=== PATIENT | female | born 1955 | race Caucasian/White ===

== ENCOUNTER 2019-03-25 19:45 | Observation (INO) ==
[2019-03-25 20:13] VITALS: BMI 43.6
[2019-03-25] MEDS ORDERED: MORPHINE SULFATE INJ 4 MG IVP ONE (22:04)
[2019-03-25] MEDS ORDERED: ZOFRAN INJ 4 MG VIAL IVP ONE (22:04)
[2019-03-25] MEDS ORDERED: ZOFRAN INJ 4 MG VIAL ONE (22:22)
[2019-03-25 22:23] LABS: BASOPHILS # (AUTO) 0.1 X10^3/uL (0.0-0.1); BASOPHILS % (AUTO) 0.7 % (0.2-1.0); EOSINOPHILS # (AUTO) 0.2 x10^3/uL (0.0-0.2); EOSINOPHILS % (AUTO) 1.6 % (0.9-2.9); HEMATOCRIT 41.6 % (36.0-47.0); HEMOGLOBIN 14.7 g/dL (12.0-16.0); LYMPHOCYTES # (AUTO) 1.8 X10^3/uL (1.3-2.9); LYMPHOCYTES % (AUTO) 18.1 % (21.0-51.0); MEAN CORPUSCULAR HEMOGLOBIN 32.3 pg (27.0-34.0); MEAN CORPUSCULAR HGB CONC 35.4 g/dL (33.0-35.0); MEAN CORPUSCULAR VOLUME 91.1 fL (80.0-100.0); MEAN PLATELET VOLUME 8.7 fL (7.4-11.0); MONOCYTES # (AUTO) 0.5 x10^3/uL (0.3-0.8); MONOCYTES % (AUTO) 5.5 % (0.0-13.0); NEUTROPHILS # (AUTO) 7.3 x10^3/uL (2.2-4.8); NEUTROPHILS % (AUTO) 74.1 % (42.0-75.0); PLATELET COUNT 234 X10^3/uL (150.0-450.0); RED BLOOD COUNT 4.56 X10^6/uL (3.5-5.4); RED CELL DISTRIBUTION WIDTH 13.9 % (11.6-16.5); WHITE BLOOD COUNT 9.9 X10^3/uL (3.6-10.0)
[2019-03-25] MEDS ORDERED: MORPHINE SULFATE INJ 4 MG ONE (22:23)
--- NOTE | 2019-03-25 22:23 | ED.ABDFE ---
HPI Time Seen Time Seen by Provider: 03/25/19 22:04 PCP Primary Care Physician: PAO Complaint Chief Complaint:: PT STATES THAT YESTERDAY AFTERNOON SHE STARTED HAVING SLIGHT PAIN IN HER LEFT LOWER PELVIS AND BY LAST NIGHT SHE COULDNT HARDLY MOVE WITH IT. PT STATES THAT IT FEELS LIKE SOMETHING IS "CATCHING". LAST BM TODAY. PT DENIES ANY INJURY. PAIN IS WORSE WITH ANY MOVEMENT Self Treatment fo Chief Complaint: TOOK TYLENOL ARTHRITIS WITH NO RELIEF Source History Provided: Patient Mode of arrival Mode of Arrival: Ambulatory Timing Onset of Chief Complaint: 03/24/19 PMH PMH Past Medical History: Yes Past Medical History: Arthritis, Asthma, Coronary Artery Disease, GERD, Hypertension and PUD Past Medical History Comment: IBS, HEMOCHROMATOSIS Past Surgical History: Yes Surgical History: Angioplasty/Stents, Appendectomy, Cholecystectomy, Hysterectomy, Ortho Surgery and Other Past Surgical History Comment: CERVICAL FUSION, ARTHRODESIS OF LEFT FOOT Family History History of Family Medical Conditions: Yes Family Medical History: Cancer, [place] and Hypertension Social History Does patient currently use any type of tobacco product: No Have you used tobacco products in the last 12 months: No Type of Tobacco Use: None Does any household member use tobacco: No Alcohol Use: None Do you use any recreational Drugs:: No Lives With: Alone Lives Where: Home infectious screening In the last 2 months have you had wt loss of >10#?: NO Have you had fever, night sweats or hemotysis?: No Have you traveled outside the country in the last 6 months?: No Isolation: Standard PE Vital Signs Vitals: Temperature 98.1 F Pulse Rate [Left Apical] 80 Pulse Rate 87 Respiratory Rate 20 Blood Pressure [Right Radial 128/62 Artery] Blood Pressure [Left Arm] 143/78 Blood Pressure [Right Arm] 129/73 Blood Pressure 187/91 O2 Sat by Pulse Oximetry 96 ROR Labs Reviewed Result Diagrams: 03/25/19 22:16 03/25/19 22:16 Laboratory: WBC 9.9 X10^3/uL (3.6-10.0) 03/25/19 22:16 RBC 4.56 X10^6/uL (3.5-5.4) 03/25/19 22:16 Hgb 14.7 g/dL (12.0-16.0) 03/25/19 22:16 Hct 41.6 % (36.0-47.0) 03/25/19 22:16 MCV 91.1 fL (80.0-100.0) 03/25/19 22:16 MCH 32.3 pg (27.0-34.0) 03/25/19 22:16 MCHC 35.4 g/dL (33.0-35.0) H 03/25/19 22:16 RDW 13.9 % (11.6-16.5) 03/25/19 22:16 Plt Count 234 X10^3/uL (150.0-450.0) 03/25/19 22:16 MPV 8.7 fL (7.4-11.0) 03/25/19 22:16 Neut % (Auto) 74.1 % (42.0-75.0) 03/25/19 22:16 Lymph % (Auto) 18.1 % (21.0-51.0) L 03/25/19 22:16 [place] % (Auto) 5.5 % (0.0-13.0) 03/25/19 22:16 Eos % (Auto) 1.6 % (0.9-2.9) 03/25/19 22:16 Baso % (Auto) 0.7 % (0.2-1.0) 03/25/19 22:16 Neut # (Auto) 7.3 x10^3/uL (2.2-4.8) H 03/25/19 22:16 Lymph # (Auto) 1.8 X10^3/uL (1.3-2.9) 03/25/19 22:16 [place] # (Auto) 0.5 x10^3/uL (0.3-0.8) 03/25/19 22:16 Eos # (Auto) 0.2 x10^3/uL (0.0-0.2) 03/25/19 22:16 Baso # (Auto) 0.1 X10^3/uL (0.0-0.1) 03/25/19 22:16 Absolute Nucleated RBC 0.0 /100WBC 03/25/19 22:16 Sodium 140 mmol/L (136-145) 03/25/19 22:16 Corrected Sodium 140 mmol/L (136-145) 03/25/19 22:16 Potassium 4.7 mmol/L (3.5-5.1) 03/25/19 22:16 Chloride 103 mmol/L (98-107) 03/25/19 22:16 Carbon Dioxide 31.4 mmol/L (21-32) 03/25/19 22:16 BUN 14 mg/dL (7-18) 03/25/19 22:16 Creatinine 0.91 mg/dL (0.55-1.02) 03/25/19 22:16 Est GFR (MDRD) Af Amer > 60 (>60) 03/25/19 22:16 Est GFR (MDRD) Non-Af > 60 (>60) 03/25/19 22:16 Glucose 115 mg/dL (65-99) H 03/25/19 22:16 Calcium 9.1 mg/dL (8.5-10.1) 03/25/19 22:16 Corrected Calcium TNP 03/25/19 22:16 Total Bilirubin 0.80 mg/dL (0.2-1.0) 03/25/19 22:16 AST 16 Units/L (15-37) 03/25/19 22:16 ALT 18 Units/L (12-78) 03/25/19 22:16 Alkaline Phosphatase 118 Units/L (46-116) H 03/25/19 22:16 Total Protein 7.8 g/dL (6.4-8.2) 03/25/19 22:16 Albumin 3.8 g/dL (3.4-5.0) 03/25/19 22:16 Globulin 4.0 g/dL (2.5-4.5) 03/25/19 22:16 Albumin/Globulin Ratio 1.0 Ratio (1.1-2.1) L 03/25/19 22:16 Amylase 26 Units/L (25-115) 03/25/19 22:16 Lipase 97 Units/L (73-393) 03/25/19 22:16 Opioid Opioid Risk Tool History of Preadolescent Sexual Abuse: No Total: 0 Total Score Risk Category: Low Risk Copyright: Danny NAVARRETE predicting aberrant behaviors
[2019-03-25 22:34] LABS: ALANINE AMINOTRANSFERASE 18 Units/L (12-78); ALBUMIN 3.8 g/dL (3.4-5.0); ALKALINE PHOSPHATASE 118 Units/L (46-116); AMYLASE 26 Units/L (25-115); ASPARTATE AMINO TRANSFERASE 16 Units/L (15-37); BLOOD UREA NITROGEN 14 mg/dL (7-18); CALCIUM 9.1 mg/dL (8.5-10.1); CARBON DIOXIDE 31.4 mmol/L (21-32); CHLORIDE 103 mmol/L (98-107); COR NA(FOR HYPERGLY) 140 mmol/L (136-145); CREATININE 0.91 mg/dL (0.55-1.02); LIPASE 97 Units/L (73-393); SODIUM 140 mmol/L (136-145); TOTAL PROTEIN 7.8 g/dL (6.4-8.2); eGFR NON BLACK RACES > 60 (>60)
--- NOTE | 2019-03-25 23:23 | CT ---
CT abdomen and pelvis without contrast Indication: Severe left lower quadrant pain Comparison: None available Technique: Multiple axial images of the abdomen and pelvis were obtained from the lung bases to the pubic symphysis without the administration of IV contrast. Coronal and sagittal reformatted images were also provided. Dose reduction techniques including automated exposure control (AEC) and adjustment of mA and kV were utilized. Findings: Overall sensitivity in detection of solid organ injury, mass or inflammatory change along with vascular injury or mesenteric hematoma is severely limited given lack of IV contrast administration. The lung bases are clear. The liver demonstrates no focal hepatic lesion given limitations of a noncontrast exam. Small calcification adjacent to the left hepatic capsule. Prior cholecystectomy. Bile ducts are normal in caliber. The spleen, pancreas and adrenal glands are normal. Neither kidney demonstrates evidence of nephrolithiasis, hydronephrosis or mass. Upper GI tract is normal. Urinary bladder is normal. No pelvic or adnexal mass. The rectum is there is inflammatory change adjacent to the descending colon seen on coronal image 21, there is no definite bowel wall thickening suggesting this represents epiploic appendagitis. Scattered diverticula are noted within the distal colon. The terminal ileum is normal. Abdominal aorta is normal in caliber. No pelvic free fluid. Review of bone windows demonstrates no acute osseous abnormality. Impression: 1.Mild inflammatory change adjacent to the descending colon, given lack of definite bowel wall thickening this is most consistent with acute epiploic appendagitis. 2. Distal colonic diverticulosis, again there is no definite bowel wall thickening to suggest acute diverticulitis. Reported By:
[2019-03-26] MEDS ORDERED: FLAGYL IV PREMIX 500 MG BAG 500 MG/100 ML BAG IV ONE (01:10)
[2019-03-26] MEDS ORDERED: PEPCID 20 MG IV PREMIX* 20 MG/50 ML BAG IV PRN (01:14)
[2019-03-26] MEDS ORDERED: MORPHINE SULFATE INJ 2 MG INJ IVP PRN (01:14)
[2019-03-26] MEDS: FLAGYL IV PREMIX 500 MG BAG 500 MG/100 ML BAG IV SCH ×5 (01:15→22:22)
[2019-03-26] MEDS ORDERED: MORPHINE SULFATE INJ 4 MG ONE (01:17)
[2019-03-26] MEDS: MORPHINE SULFATE INJ 4 MG IVP PRN (01:27)
[2019-03-26] MEDS: ZOFRAN INJ 4 MG VIAL IVP PRN (01:27)
[2019-03-26] MEDS: NS 1000 ML 1,000 ML IV SCH ×4 (01:28→22:22)
[2019-03-26] MEDS ORDERED: CIPRO IV 400 MG PREMIX* 400 MG/200 ML IV.SOLN. IV ONE (02:03)
[2019-03-26] MEDS: CIPRO IV 400 MG PREMIX* 400 MG/200 ML IV.SOLN. IV SCH ×3 (02:07→20:45)
[2019-03-26 03:10] LABS: BILIRUBIN,URINE NEGATIVE (NEGATIVE); BLOOD/HEMOGLOBIN,URINE NEGATIVE (NEGATIVE); GLUCOSE, URINE NEGATIVE (NEGATIVE); KETONES,URINE NEGATIVE (NEGATIVE); LEUKOCYTE ESTERASE ,URINE 1+ (NEGATIVE); NITRITES,URINE NEGATIVE (NEGATIVE); PROTEIN,URINE NEGATIVE (NEGATIVE); UROBILINOGEN,URINE NORMAL (NORMAL)
[2019-03-26 03:14] LABS: APPEARANCE,URINE CLEAR (CLEAR); BACTERIA,URINE NEGATIVE /HPF (NEGATIVE); COLOR,URINE YELLOW (YELLOW); RBC,URINE NONE SEEN /HPF (0-3); SQUAMOUS EPITHELIAL CELL,UR MODERATE /HPF (NEGATIVE)
[2019-03-26 06:18] LABS: BASOPHILS % (AUTO) 0.5 % (0.2-1.0); EOSINOPHILS # (AUTO) 0.1 x10^3/uL (0.0-0.2); EOSINOPHILS % (AUTO) 1.1 % (0.9-2.9); HEMATOCRIT 37.5 % (36.0-47.0); LYMPHOCYTES # (AUTO) 1.1 X10^3/uL (1.3-2.9); LYMPHOCYTES % (AUTO) 12.1 % (21.0-51.0); MEAN CORPUSCULAR HEMOGLOBIN 31.8 pg (27.0-34.0); MEAN CORPUSCULAR HGB CONC 34.7 g/dL (33.0-35.0); MEAN CORPUSCULAR VOLUME 91.7 fL (80.0-100.0); MEAN PLATELET VOLUME 8.9 fL (7.4-11.0); MONOCYTES # (AUTO) 0.5 x10^3/uL (0.3-0.8); MONOCYTES % (AUTO) 5.4 % (0.0-13.0); NEUTROPHILS # (AUTO) 7.5 x10^3/uL (2.2-4.8); NEUTROPHILS % (AUTO) 80.9 % (42.0-75.0); PLATELET COUNT 196 X10^3/uL (150.0-450.0); RED BLOOD COUNT 4.09 X10^6/uL (3.5-5.4); RED CELL DISTRIBUTION WIDTH 13.7 % (11.6-16.5); WHITE BLOOD COUNT 9.2 X10^3/uL (3.6-10.0)
[2019-03-26 06:24] LABS: ALANINE AMINOTRANSFERASE 20 Units/L (12-78); ALBUMIN 3.2 g/dL (3.4-5.0); ALKALINE PHOSPHATASE 106 Units/L (46-116); AMYLASE 18 Units/L (25-115); ASPARTATE AMINO TRANSFERASE 25 Units/L (15-37); BLOOD UREA NITROGEN 13 mg/dL (7-18); CALCIUM 8.7 mg/dL (8.5-10.1); CARBON DIOXIDE 29.2 mmol/L (21-32); CHLORIDE 104 mmol/L (98-107); COR CA(FOR HYPOALB) 9.3 mg/dL (8.5-10.1); COR NA(FOR HYPERGLY) 141 mmol/L (136-145); CREATININE 0.87 mg/dL (0.55-1.02); SODIUM 140 mmol/L (136-145); TOTAL PROTEIN 6.8 g/dL (6.4-8.2); eGFR NON BLACK RACES > 60 (>60)
--- NOTE | 2019-03-26 10:49 | DR.H&P ---
H&P - History & Physical for Day of: H&P Date: 03/26/19 - Chief Complaint Chief Complaint: ABDOMINAL PAIN - History of Present Illness History of Present Illness: IS A 63 YEAR OLD PATIENT OF OURS WHO PRESENTED TO THE ER WITH COMPLAINTS OF LOWER ABDOMINAL PAIN. SHIRA STARTED ONE DAY PRIOR TO ARRIVAL. SHE REPORTS THAT PAIN IS WORSE WITH MOVEMENT. SHE HAS A HISTORY OF APPENDECTOMY, CHOLECYSTECTOMY, AND HYSTERECTOMY. ON ARRIVAL TO [facility] THE VITALS WERE 97.9-87-20-99%-187/91. LABS WERE OBTAINED. ABNORMAL LAB VALUES INCLUDE THE FOLLOWING: GLUCOSE 115, ALK PHOS 118. URINALYSIS REVEALED: WBC 3-5, LEUKOCYTES 1+, BACTERIA NEGATIVE. AN ABDOMEN/PELVIS CT WITHOUT CONTRAST WAS OBTAINED AND REVEALED: Mild inflammatory change adjacent to the descending colon, given lack of definite bowel wall thickening this is most consistent with acute epiploic appendagitis. Distal colonic diverticulosis, again there is no definite bowel wall thickening to suggest acute diverticulitis. SHE WAS GIVEN MORPHINE 4MG IV X 1 AND ZOFRAN 4MG IV X 1 IN THE ER. SHE REPORTED SLIGHT IMPROVEMENT IN SYMPTOMS. SHE WAS ADMITTED FOR FURTHER EVALUATION AND TREATMENT OF ACUTE EPIPLOIC APPENDAGITIS AND ACUTE LLQ ABDOMINAL PAIN. SHE WAS STARTED ON CIPRO 400MG IV Q12H, FLAGYL 500MG IV Q6H, PEPCID 20MG IV BID, MORPHINE 4MG IV Q4H PRN, AND ZOFRAN 4MG IV Q6H PRN. WE WILL CONSULT WITH . OTHERWISE, WE WILL FOLLOW UP WITH AM LABS AND CONTINUE TO MONITOR. - Past Medical History Past Medical History: Coronary Artery Disease, Hypertension, Asthma, PUD, GERD, Arthritis - Past Surgical History Surgical History: Angioplasty/Stents, Appendectomy, Cholecystectomy, Hysterectomy, Ortho Surgery - Family History Family Medical History: Cancer, CT, Coronary Artery Disease, Hypertension - Social History Does patient currently use any type of tobacco product: No Have you used tobacco products in the last 12 months: No Type of Tobacco Use: None Does any household member use tobacco: No Alcohol Use: None Drug Use: None Prescription drug monitoring program results: PDMP was not reviewed - Medications Home Medications: cetirizine [From Zyrtec] Allergy (Verified 03/25/19 20:14) hydromorphone [From Dilaudid] Allergy (Verified 03/25/19 20:14) Penicillins Allergy (Verified 03/25/19 20:14) promethazine [From Phenergan] Allergy (Verified 03/25/19 20:14) Sulfa (Sulfonamide Antibiotics) Allergy (Verified 03/25/19 20:14) - Review of Systems Constitutional: No Symptoms Reported Eyes: No Symptoms Reported ENT: No Symptoms Reported Respiratory: No Symptoms Reported Cardiovascular: No Symptoms Reported Gastrointestinal: See HPI, Nausea, Vomiting, Abdominal Pain Genitourinary: No Symptoms Reported Musculoskeletal: No Symptoms Reported Skin: No Symptoms Reported Neurological: No Symptoms Reported - Physical Exam Vital Signs: Temperature 98.1 F Pulse Rate [Left Brachial] 62 Pulse Rate [Left Apical] 77 Pulse Rate 87 Respiratory Rate 18 Blood Pressure [Right Radial 128/62 Artery] Blood Pressure [Left Arm] 132/67 Blood Pressure [Right Arm] 129/73 Blood Pressure 187/91 O2 Sat by Pulse Oximetry 95 Oriented: Normal Eyes: Normal Ear: Normal Nose: Normal Throat: Normal Respiratory: Diminished Throughout Cardiovascular: Normal : Normal Auscultation: Bowel Sounds: Normal Palpation: Normal Tenderness: LLQ, Moderate. negative: Rebound, Guarding, Rigidity Skin: Normal Musculoskeletal: Normal Psychiatric: Normal Mood Description: Calm Affect: Normal Speech Pattern: Clear - Assessment/Plan (1) Epiploic appendagitis Status: Acute Plan: IV CIPRO, IV FLAGYL, CONTINUE TO MONITOR (2) LLQ abdominal pain Status: Acute - Allergies Allergies/Adverse Reactions: Allergies Allergy/AdvReac Type Severity Reaction Status Date / Time cetirizine [From Zyrtec] Allergy Verified 03/25/19 20:14 hydromorphone [From Dilaudid] Allergy Verified 03/25/19 20:14 Penicillins Allergy Verified 03/25/19 20:14 promethazine [From Phenergan] Allergy Verified 03/25/19 20:14 Sulfa (Sulfonamide Allergy Verified 03/25/19 20:14 Antibiotics)
[2019-03-26] MEDS: LOVENOX INJ 40 MG SYR SC SCH (11:56)
[2019-03-26] MEDS: PROTONIX TAB 40 MG PO SCH (11:57)
[2019-03-26] MEDS: TOPROL XL PO SCH (20:43)
[2019-03-27] MEDS: FLAGYL IV PREMIX 500 MG BAG 500 MG/100 ML BAG IV SCH ×4 (02:11→21:45)
[2019-03-27] MEDS: NS 1000 ML 1,000 ML IV SCH ×3 (06:03→18:21)
[2019-03-27 06:40] LABS: BASOPHILS # (AUTO) 0.1 X10^3/uL (0.0-0.1); BASOPHILS % (AUTO) 0.9 % (0.2-1.0); EOSINOPHILS # (AUTO) 0.2 x10^3/uL (0.0-0.2); EOSINOPHILS % (AUTO) 2.3 % (0.9-2.9); HEMATOCRIT 37.2 % (36.0-47.0); HEMOGLOBIN 12.9 g/dL (12.0-16.0); LYMPHOCYTES # (AUTO) 0.9 X10^3/uL (1.3-2.9); LYMPHOCYTES % (AUTO) 12.7 % (21.0-51.0); MEAN CORPUSCULAR HEMOGLOBIN 32.2 pg (27.0-34.0); MEAN CORPUSCULAR HGB CONC 34.8 g/dL (33.0-35.0); MEAN CORPUSCULAR VOLUME 92.6 fL (80.0-100.0); MEAN PLATELET VOLUME 9.3 fL (7.4-11.0); MONOCYTES # (AUTO) 0.4 x10^3/uL (0.3-0.8); MONOCYTES % (AUTO) 5.5 % (0.0-13.0); NEUTROPHILS # (AUTO) 5.7 x10^3/uL (2.2-4.8); NEUTROPHILS % (AUTO) 78.6 % (42.0-75.0); PLATELET COUNT 206 X10^3/uL (150.0-450.0); RED BLOOD COUNT 4.01 X10^6/uL (3.5-5.4); RED CELL DISTRIBUTION WIDTH 13.7 % (11.6-16.5); WHITE BLOOD COUNT 7.3 X10^3/uL (3.6-10.0)
[2019-03-27 06:55] LABS: ALANINE AMINOTRANSFERASE 22 Units/L (12-78); ALBUMIN 3.2 g/dL (3.4-5.0); ALKALINE PHOSPHATASE 103 Units/L (46-116); ASPARTATE AMINO TRANSFERASE 18 Units/L (15-37); BLOOD UREA NITROGEN 9 mg/dL (7-18); CALCIUM 8.5 mg/dL (8.5-10.1); CARBON DIOXIDE 28.1 mmol/L (21-32); CHLORIDE 105 mmol/L (98-107); COR CA(FOR HYPOALB) 9.1 mg/dL (8.5-10.1); COR NA(FOR HYPERGLY) 140 mmol/L (136-145); CREATININE 0.81 mg/dL (0.55-1.02); SODIUM 140 mmol/L (136-145); TOTAL PROTEIN 6.6 g/dL (6.4-8.2); eGFR NON BLACK RACES > 60 (>60)
[2019-03-27] MEDS: PROTONIX TAB 40 MG PO SCH (08:20)
[2019-03-27] MEDS: LOVENOX INJ 40 MG SYR SC SCH (08:25)
[2019-03-27] MEDS: CIPRO IV 400 MG PREMIX* 400 MG/200 ML IV.SOLN. IV SCH ×2 (10:07→20:45)
[2019-03-27] MEDS: MORPHINE SULFATE INJ 4 MG IVP PRN (10:07)
[2019-03-27] MEDS: TORADOL 30 MG VIAL IVP SCH ×2 (10:12→18:21)
[2019-03-27] MEDS: ZOFRAN INJ 4 MG VIAL IVP PRN ×3 (10:14→22:07)
--- NOTE | 2019-03-27 18:14 | PCM.PROG ---
Progress Note - Progress Note for Day of Date of Exam: 03/27/19 - Subjective Subjective: WAS ADMITTED FO R LOWER ABDOMINAL PAIN. ABDOMEN/PELVIS CT WITHOUT CONTRAST REVEALED EPIPLOIC APPENDAGITIS. TODAY, SHE IS ALERT AND ORIENTED, LYING IN BED ON MORNING ROUNDS. SHE CONTINUES WITH COMPLAINTS OF MODERATE SHORTNESS OF BREATH. ON EXAMINATION, HEART IS REGULAR IN RATE AND R HYTHM. ABDOMEN IS ROUND, SOFT, AND NOTED WITH DIFFUSE TENDERNESS TO PALPATION. NORMAL BOWEL SOUNDS ARE NOTED IN ALL QUADRANTS. HER VITALS THIS MORNING ARE: 98.5-58-18-95%-138/65. LABS WERE OBTAINED. ABNORMAL LAB VALUES INCLUDE THE FOLLOWING: GLUCOSE 113, CRP 17.60, ALBUMIN 3.2. HE IS CURRENTLY RECEIVING CIPRO 400MG IV Q12H, FLAGYL 500MG IV Q6H, PEPCID 20MG IV BID, MORPHINE 4MG IV Q4H PRN, AND ZOFRAN 4MG IV Q6H PRN. WE WILL CONTINUE WITH CURRENT PLAN OF CARE TODAY AND OBTAIN AN ABDOMEN/PELVIS CT WITH CONTRAST. WE WILL START TORADOL 30MG IV Q8H. OTHERWISE, WE PLAN TO FOLLOW UP WITH AM LABS AND CONTINUE TO MONITOR. - Past Medical Family Social History Past Med/Fam/Surg Hx: No changes since H&P Allergies: Allergies cetirizine [From Zyrtec] Allergy (Verified 03/25/19 20:14) hydromorphone [From Dilaudid] Allergy (Verified 03/25/19 20:14) Penicillins Allergy (Verified 03/25/19 20:14) promethazine [From Phenergan] Allergy (Verified 03/25/19 20:14) Sulfa (Sulfonamide Antibiotics) Allergy (Verified 03/25/19 20:14) - Review of Systems ROS: No change since H&P - Vital Signs and I&O's Vital Signs: Temperature 97.8 F Pulse Rate [Left Brachial] 66 Pulse Rate [Left Apical] 77 Pulse Rate 87 Respiratory Rate 18 Blood Pressure [Right Radial 128/62 Artery] Blood Pressure [Left Arm] 142/65 Blood Pressure [Right Arm] 129/73 Blood Pressure 187/91 O2 Sat by Pulse Oximetry 95 Intake and Output: Intake & Output 03/25/19 03/26/19 03/27/19 03/28/19 11:59 11:59 11:59 11:59 Intake Total 520 / 520 3090 / 3090 520 / 520 Output Total Balance 520 / 520 3080 / 3080 520 / 520 - Physical Exam Oriented: Normal Eyes: Normal Ear: Normal Nose: Normal Throat: Normal Respiratory: Generalized, Diminished Cardiovascular: Normal : Normal Auscultation: Bowel Sounds: Normal Palpation: Normal Tenderness: LLQ, Moderate. negative: Rebound, Guarding, Rigidity Skin: Normal Musculoskeletal: Normal Psychiatric: Normal Mood Description: Calm Affect: Normal Speech Pattern: Clear, Appropriate - Laboratory and Diagnostics Result Diagrams: 03/27/19 05:17 03/27/19 05:17 Labs: Laboratory WBC 7.3 X10^3/uL (3.6-10.0) 03/27/19 05:17 RBC 4.01 X10^6/uL (3.5-5.4) 03/27/19 05:17 Hgb 12.9 g/dL (12.0-16.0) 03/27/19 05:17 Hct 37.2 % (36.0-47.0) 03/27/19 05:17 MCV 92.6 fL (80.0-100.0) 03/27/19 05:17 MCH 32.2 pg (27.0-34.0) 03/27/19 05:17 MCHC 34.8 g/dL (33.0-35.0) 03/27/19 05:17 RDW 13.7 % (11.6-16.5) 03/27/19 05:17 Plt Count 206 X10^3/uL (150.0-450.0) 03/27/19 05:17 MPV 9.3 fL (7.4-11.0) 03/27/19 05:17 Neut % (Auto) 78.6 % (42.0-75.0) H 03/27/19 05:17 Lymph % (Auto) 12.7 % (21.0-51.0) L 03/27/19 05:17 [place] % (Auto) 5.5 % (0.0-13.0) 03/27/19 05:17 Eos % (Auto) 2.3 % (0.9-2.9) 03/27/19 05:17 Baso % (Auto) 0.9 % (0.2-1.0) 03/27/19 05:17 Neut # (Auto) 5.7 x10^3/uL (2.2-4.8) H 03/27/19 05:17 Lymph # (Auto) 0.9 X10^3/uL (1.3-2.9) L 03/27/19 05:17 [place] # (Auto) 0.4 x10^3/uL (0.3-0.8) 03/27/19 05:17 Eos # (Auto) 0.2 x10^3/uL (0.0-0.2) 03/27/19 05:17 Baso # (Auto) 0.1 X10^3/uL (0.0-0.1) 03/27/19 05:17 Absolute Nucleated RBC 0.0 /100WBC 03/27/19 05:17 ESR 25 MM/HOUR (0-20) H 03/27/19 05:17 Sodium 140 mmol/L (136-145) 03/27/19 05:17 Corrected Sodium 140 mmol/L (136-145) 03/27/19 05:17 Potassium 4.3 mmol/L (3.5-5.1) 03/27/19 05:17 Chloride 105 mmol/L (98-107) 03/27/19 05:17 Carbon Dioxide 28.1 mmol/L (21-32) 03/27/19 05:17 BUN 9 mg/dL (7-18) 03/27/19 05:17 Creatinine 0.81 mg/dL (0.55-1.02) 03/27/19 05:17 Est GFR (MDRD) Af Amer > 60 (>60) 03/27/19 05:17 Est GFR (MDRD) Non-Af > 60 (>60) 03/27/19 05:17 Glucose 113 mg/dL (65-99) H 03/27/19 05:17 Calcium 8.5 mg/dL (8.5-10.1) 03/27/19 05:17 Corrected Calcium 9.1 mg/dL (8.5-10.1) 03/27/19 05:17 Total Bilirubin 0.70 mg/dL (0.2-1.0) 03/27/19 05:17 AST 18 Units/L (15-37) 03/27/19 05:17 ALT 22 Units/L (12-78) 03/27/19 05:17 Alkaline Phosphatase 103 Units/L (46-116) 03/27/19 05:17 C-Reactive Protein 17.60 mg/L (0-3.0) H 03/27/19 05:17 Total Protein 6.6 g/dL (6.4-8.2) 03/27/19 05:17 Albumin 3.2 g/dL (3.4-5.0) L 03/27/19 05:17 Globulin 3.4 g/dL (2.5-4.5) 03/27/19 05:17 Albumin/Globulin Ratio 0.9 Ratio (1.1-2.1) L 03/27/19 05:17 Amylase 18 Units/L (25-115) L 03/26/19 05:12 Lipase 97 Units/L (73-393) 03/25/19 22:16 Specimen Type Clean catch urine 03/26/19 02:50 Urine Color Yellow (YELLOW) 03/26/19 02:50 Urine Appearance Clear (CLEAR) 03/26/19 02:50 Urine pH 5.0 (5.0 - 8.0) 03/26/19 02:50 Ur Specific [place] 1.020 (1.000-1.030) 03/26/19 02:50 Urine Protein Negative (NEGATIVE) 03/26/19 02:50 Urine Glucose (UA) Negative (NEGATIVE) 03/26/19 02:50 Urine Ketones Negative (NEGATIVE) 03/26/19 02:50 Urine Occult Blood Negative (NEGATIVE) 03/26/19 02:50 Urine Nitrite Negative (NEGATIVE) 03/26/19 02:50 Urine Bilirubin Negative (NEGATIVE) 03/26/19 02:50 Urine Urobilinogen Normal (NORMAL) 03/26/19 02:50 Ur Leukocyte Esterase 1+ (NEGATIVE) 03/26/19 02:50 Urine RBC None seen /HPF (0-3) 03/26/19 02:50 Urine WBC 3-5 /HPF (0-5) 03/26/19 02:50 Ur Squamous Epith Cells Moderate /HPF (NEGATIVE) 03/26/19 02:50 Urine Bacteria Negative /HPF (NEGATIVE) 03/26/19 02:50 Ur Culture Indicated? No/not indicated 03/26/19 02:50 - Plan (1) Epiploic appendagitis Status: Acute Plan: IV CIPRO, IV FLAGYL, CONTINUE TO MONITOR (2) LLQ abdominal pain Status: Acute Plan: OBTAIN ABDOMEN/PELVIS CT WITH CONTRAST. CONTINUE TO MONITOR
[2019-03-27] MEDS: TOPROL XL PO SCH (20:45)
[2019-03-28] MEDS: TORADOL 30 MG VIAL IVP SCH ×2 (02:07→09:21)
[2019-03-28] MEDS: FLAGYL IV PREMIX 500 MG BAG 500 MG/100 ML BAG IV SCH ×2 (02:08→09:20)
[2019-03-28] MEDS: NS 1000 ML 1,000 ML IV SCH (03:14)
[2019-03-28 05:47] LABS: BASOPHILS # (AUTO) 0.1 X10^3/uL (0.0-0.1); EOSINOPHILS # (AUTO) 0.2 x10^3/uL (0.0-0.2); EOSINOPHILS % (AUTO) 2.5 % (0.9-2.9); HEMATOCRIT 34.6 % (36.0-47.0); HEMOGLOBIN 12.2 g/dL (12.0-16.0); LYMPHOCYTES # (AUTO) 1.1 X10^3/uL (1.3-2.9); MEAN CORPUSCULAR HEMOGLOBIN 32.6 pg (27.0-34.0); MEAN CORPUSCULAR HGB CONC 35.3 g/dL (33.0-35.0); MEAN CORPUSCULAR VOLUME 92.2 fL (80.0-100.0); MONOCYTES # (AUTO) 0.5 x10^3/uL (0.3-0.8); NEUTROPHILS # (AUTO) 5.1 x10^3/uL (2.2-4.8); NEUTROPHILS % (AUTO) 73.5 % (42.0-75.0); PLATELET COUNT 180 X10^3/uL (150.0-450.0); RED BLOOD COUNT 3.75 X10^6/uL (3.5-5.4); RED CELL DISTRIBUTION WIDTH 13.8 % (11.6-16.5)
[2019-03-28 06:01] LABS: ALANINE AMINOTRANSFERASE 19 Units/L (12-78); ALBUMIN 2.9 g/dL (3.4-5.0); ALKALINE PHOSPHATASE 92 Units/L (46-116); ASPARTATE AMINO TRANSFERASE 14 Units/L (15-37); BLOOD UREA NITROGEN 9 mg/dL (7-18); CHLORIDE 107 mmol/L (98-107); COR CA(FOR HYPOALB) 8.9 mg/dL (8.5-10.1); CREATININE 0.69 mg/dL (0.55-1.02); SODIUM 140 mmol/L (136-145); TOTAL PROTEIN 6.1 g/dL (6.4-8.2); eGFR NON BLACK RACES > 60 (>60)
[2019-03-28] MEDS: CIPRO IV 400 MG PREMIX* 400 MG/200 ML IV.SOLN. IV SCH (09:20)
[2019-03-28] MEDS: LOVENOX INJ 40 MG SYR SC SCH (09:21)
[2019-03-28] MEDS: PROTONIX TAB 40 MG PO SCH (09:21)
[2019-03-28] MEDS: ZOFRAN INJ 4 MG VIAL IVP PRN (09:21)
[2019-03-28] MEDS ORDERED: REGLAN INJ 10 MG VIAL IVP SCH (10:26)
--- NOTE | 2019-03-28 12:17 | RAD ---
HISTORY: Left lower quadrant pain. Prior surgical history of appendectomy, cholecystectomy, hysterectomy and orthopedic surgery. Study: Acute abdominal series Comparison: Chest x-ray done 01/27/2019. CT scan of the abdomen and pelvis done 03/25/2019. Findings: There is evidence of lower cervical spine surgery with metallic plate and screws present. The trachea is midline. The cardiac silhouette is unremarkable. There is atherosclerotic calcification of the aortic arch. The lungs are clear without focal infiltrate or effusion. The bony thorax is unremarkable. Flat plate and upright evaluation of the abdomen demonstrates a very mild small bowel ileus pattern in the left abdomen. This may be reactive. There is air present throughout the colon without obstruction. No free intraperitoneal air or fluid is seen. There are surgical clips from cholecystectomy.. No pathological soft tissue mass or calcification can be observed. The bony structures are grossly intact. IMPRESSION: 1. No acute cardiopulmonary disease. 2. Very mild small bowel ileus in the left abdomen. This may be reactive. No evidence of bowel obstruction or perforation is seen. Reported By:
[2019-03-28 14:36] VITALS: BP 147/70
== END 2019-03-28 14:15 | disposition home or self-care (01) ==
LOC: ER 19:45 → MED/SURG 19:45
PROVIDERS: ADMIT Obstetrics & Gynecology Obstetrics; ATTEND Internal Medicine
DX: K56.7 Ileus, unspecified; R10.32 Left lower quadrant pain; R06.02 Shortness of breath; K21.9 Gastro-esophageal reflux disease without esophagitis; K52.89 Other specified noninfective gastroenteritis and colitis; K63.89 Other specified diseases of intestine; I10 Essential (primary) hypertension; I25.10 Atherosclerotic heart disease of native coronary artery without angina pectoris; Z79.899 Other long term (current) drug therapy; M13.89 Other specified arthritis, multiple sites
CPT/HCPCS: 36415; 74022; 74176; 80053; 81001; 82150; 83690; 85025; 85652; 86140; 96365; 96374; 96375; 99284; A4222; S0030; G0378; J0744; J1650; J1885; J2270; J2405; J2765; J7030

== ENCOUNTER 2023-07-21 11:28 | Observation (INO) ==
[2023-07-21 13:31] VITALS: BMI 33.9
[2023-07-21] MEDS: LEVAQUIN PREMIX IV 750 MG 750 MG/150 ML BAG IV SCH (13:36)
[2023-07-21] MEDS: PULMICORT NEB TX 0.5 MG NEB SCH (13:46)
[2023-07-21] MEDS: DUONEB 0.5 MG/3 MG (3 mL) NEB SCH (13:59)
[2023-07-21] MEDS: MUCOMYST 20% 200 MG/ML NEB SCH (14:00)
[2023-07-21 14:07] LABS: BASOPHILS % (AUTO) 0.5 % (0.2-1.0); EOSINOPHILS % (AUTO) 0.3 % (0.9-2.9); HEMATOCRIT 39.2 % (36.0-47.0); HEMOGLOBIN 13.5 g/dL (12.0-16.0); LYMPHOCYTES # (AUTO) 1.2 X10^3/uL (1.3-2.9); MEAN CORPUSCULAR HGB CONC 34.5 g/dL (33.0-35.0); MEAN CORPUSCULAR VOLUME 92.9 fL (80.0-100.0); MEAN PLATELET VOLUME 8.6 fL (7.4-11.0); MONOCYTES # (AUTO) 0.4 x10^3/uL (0.3-0.8); MONOCYTES % (AUTO) 5.2 % (0.0-13.0); NEUTROPHILS # (AUTO) 5.8 x10^3/uL (2.2-4.8); PLATELET COUNT 206 X10^3/uL (150.0-450.0); RED BLOOD COUNT 4.22 X10^6/uL (3.5-5.4); RED CELL DISTRIBUTION WIDTH 14.6 % (11.6-16.5); WHITE BLOOD COUNT 7.4 X10^3/uL (3.6-10.0)
[2023-07-21 14:17] LABS: ALANINE AMINOTRANSFERASE 44 Units/L (12-78); ALBUMIN 3.2 g/dL (3.4-5.0); ALKALINE PHOSPHATASE 105 Units/L (46-116); ASPARTATE AMINO TRANSFERASE 30 Units/L (15-37); BLOOD UREA NITROGEN 21 mg/dL (7-18); CALCIUM 9.2 mg/dL (8.5-10.1); CHLORIDE 102 mmol/L (98-107); COR CA(FOR HYPOALB) 9.8 mg/dL (8.5-10.1); CREATININE 0.81 mg/dL (0.55-1.02); GLUCOSE 86 mg/dL (65-99); POTASSIUM 3.9 mmol/L (3.5-5.1); SODIUM 141 mmol/L (136-145); TOTAL PROTEIN 6.9 g/dL (6.4-8.2); eGFR NON BLACK RACES > 60 (>60)
[2023-07-21] MEDS: MUCOMYST 20% 200 MG/ML ONE (14:32)
--- NOTE | 2023-07-21 14:49 | RAD ---
EXAM: CHEST, 1 VIEW HISTORY: SOB; COMPARISON: Prior study or studies were utilized for comparison during interpretation with the most relevant melba ed 07/18/2023 TECHNIQUE: CHEST, 1 VIEW FINDINGS: Chest: Lines and tubes: None Mediastinum: Cardiac and mediastinal shadow is within normal limits for size and contour. Pulmonary vessels: No pulmonary vascular congestion. Lung khan: No suspicious airspace opacity. Pleura: No effusion. No pneumothorax. Bones and soft tissues: No acute osseous or soft tissue abnormality. IMPRESSION: 1. No acute cardiopulmonary abnormality THIS IS AN ELECTRONICALLY VERIFIED FINAL REPORT 07/21/2023 2:46 PM - Electronically signed by Wayne Clay MD
[2023-07-21] MEDS: PROTONIX TAB 40 MG PO SCH (21:34)
[2023-07-21] MEDS: LIPITOR TAB 40 MG PO SCH (21:34)
[2023-07-22] MEDS: RESTORIL CAP 15 MG PO PRN (00:22)
[2023-07-22 06:18] LABS: BASOPHILS % (AUTO) 0.6 % (0.2-1.0); EOSINOPHILS # (AUTO) 0.1 x10^3/uL (0.0-0.2); EOSINOPHILS % (AUTO) 1.6 % (0.9-2.9); HEMATOCRIT 35.6 % (36.0-47.0); HEMOGLOBIN 12.5 g/dL (12.0-16.0); LYMPHOCYTES # (AUTO) 1.7 X10^3/uL (1.3-2.9); LYMPHOCYTES % (AUTO) 25.5 % (21.0-51.0); MEAN CORPUSCULAR HEMOGLOBIN 32.6 pg (27.0-34.0); MEAN CORPUSCULAR HGB CONC 35.1 g/dL (33.0-35.0); MEAN CORPUSCULAR VOLUME 93.1 fL (80.0-100.0); MEAN PLATELET VOLUME 8.7 fL (7.4-11.0); MONOCYTES # (AUTO) 0.4 x10^3/uL (0.3-0.8); MONOCYTES % (AUTO) 6.2 % (0.0-13.0); NEUTROPHILS # (AUTO) 4.3 x10^3/uL (2.2-4.8); NEUTROPHILS % (AUTO) 66.1 % (42.0-75.0); PLATELET COUNT 183 X10^3/uL (150.0-450.0); RED BLOOD COUNT 3.82 X10^6/uL (3.5-5.4); RED CELL DISTRIBUTION WIDTH 14.5 % (11.6-16.5); WHITE BLOOD COUNT 6.6 X10^3/uL (3.6-10.0)
[2023-07-22 06:35] LABS: ALANINE AMINOTRANSFERASE 33 Units/L (12-78); ALBUMIN 2.6 g/dL (3.4-5.0); ALKALINE PHOSPHATASE 88 Units/L (46-116); ASPARTATE AMINO TRANSFERASE 23 Units/L (15-37); BLOOD UREA NITROGEN 19 mg/dL (7-18); CALCIUM 8.4 mg/dL (8.5-10.1); CARBON DIOXIDE 30.7 mmol/L (21-32); CHLORIDE 105 mmol/L (98-107); COR CA(FOR HYPOALB) 9.5 mg/dL (8.5-10.1); GLUCOSE 82 mg/dL (65-99); POTASSIUM 3.9 mmol/L (3.5-5.1); SODIUM 143 mmol/L (136-145); TOTAL PROTEIN 5.8 g/dL (6.4-8.2); eGFR NON BLACK RACES > 60 (>60)
[2023-07-22] MEDS: ASPIRIN 81 MG CHEWTAB PO SCH (08:40)
[2023-07-22] MEDS: LOVENOX INJ 40 MG SYR SC SCH (10:51)
[2023-07-22] MEDS: ROBITUSSIN DM PO SCH (13:35)
[2023-07-23] MEDS: TYLENOL 325 MG TAB PO PRN (05:00)
[2023-07-23 06:00] LABS: BASOPHILS % (AUTO) 0.4 % (0.2-1.0); EOSINOPHILS # (AUTO) 0.2 x10^3/uL (0.0-0.2); EOSINOPHILS % (AUTO) 2.6 % (0.9-2.9); HEMATOCRIT 38.3 % (36.0-47.0); HEMOGLOBIN 13.1 g/dL (12.0-16.0); LYMPHOCYTES # (AUTO) 0.9 X10^3/uL (1.3-2.9); LYMPHOCYTES % (AUTO) 12.7 % (21.0-51.0); MEAN CORPUSCULAR HGB CONC 34.1 g/dL (33.0-35.0); MEAN PLATELET VOLUME 8.7 fL (7.4-11.0); MONOCYTES # (AUTO) 0.5 x10^3/uL (0.3-0.8); MONOCYTES % (AUTO) 7.6 % (0.0-13.0); NEUTROPHILS # (AUTO) 5.2 x10^3/uL (2.2-4.8); NEUTROPHILS % (AUTO) 76.7 % (42.0-75.0); PLATELET COUNT 186 X10^3/uL (150.0-450.0); RED BLOOD COUNT 4.07 X10^6/uL (3.5-5.4); RED CELL DISTRIBUTION WIDTH 14.3 % (11.6-16.5); WHITE BLOOD COUNT 6.8 X10^3/uL (3.6-10.0)
[2023-07-23 06:08] LABS: ALANINE AMINOTRANSFERASE 32 Units/L (12-78); ALBUMIN 2.7 g/dL (3.4-5.0); ALKALINE PHOSPHATASE 94 Units/L (46-116); ASPARTATE AMINO TRANSFERASE 22 Units/L (15-37); BLOOD UREA NITROGEN 14 mg/dL (7-18); CALCIUM 8.4 mg/dL (8.5-10.1); CARBON DIOXIDE 30.5 mmol/L (21-32); CHLORIDE 106 mmol/L (98-107); COR CA(FOR HYPOALB) 9.4 mg/dL (8.5-10.1); CREATININE 0.72 mg/dL (0.55-1.02); GLUCOSE 89 mg/dL (65-99); SODIUM 142 mmol/L (136-145); TOTAL PROTEIN 5.8 g/dL (6.4-8.2); eGFR NON BLACK RACES > 60 (>60)
--- NOTE | 2023-07-23 08:38 | DR.H&P ---
H&P History & Physical for Day of: H&P Date: 07/22/23 Chief Complaint Chief Complaint: Cough shortness of breath Allergies Allergies Allergy/AdvReac Type Severity Reaction Status Date / Time cetirizine [From Zyrtec] Allergy Verified 07/18/23 16:45 hydromorphone [From Dilaudid] Allergy Verified 07/18/23 16:45 Penicillins Allergy Verified 07/18/23 16:45 promethazine [From Phenergan] Allergy Verified 07/18/23 16:45 Sulfa (Sulfonamide Allergy Verified 07/18/23 16:45 Antibiotics) History of Present Illness History of Present Illness: Patient is a 67-year-old female with a past medical history of CAD, dyslipidemia, asthma, presenting with shortness of breath and cough for the past few days that has been gradually getting worse. She reports also having congestion, fever, chills. Labs/imaging: WBC 6.6, hemoglobin 12.5, platelets 183, sodium 143, potassium 3.9, creatinine 0.80, glucose 82, COVID/flu/RSV negative, AIT resulted in human metapneumovirus. Patient is admitted for human metapneumovirus pneumonia and bronchitis. Patient is currently on IV Levaquin, scheduled bronchodilators, and incentive spirometer. Will order smart vest to help with chest congestion. Order cough syrup. Restart home medications. Otherwise, continue closely monitor and follow-up labs/imaging in the morning. Past Medical History Past Medical History: Asthma, Coronary Artery Disease, Dyslipidemia and GERD Past Surgical History Surgical History: Appendectomy, Cholecystectomy and Hysterectomy Family History Family Medical History: Cancer and Sudden Cardiac Social History Does patient currently use any type of tobacco product: No Have you used tobacco products in the last 12 months: No Type of Tobacco Use: None Does any household member use tobacco: No Alcohol Use: None Drug Use: None Medications Home Medications: Home Medications Medication Instructions Recorded Confirmed Type pantoprazole 40 mg tablet,delayed 40 mg PO BID 01/26/19 07/21/23 History release methylprednisolone 4 mg tablets in See Rx Instructions .Route .COMPLEX 07/18/23 07/21/23 History a dose pack ondansetron 4 mg disintegrating 4 mg PO Q8H PRN 07/18/23 07/21/23 History tablet aspirin 81 mg chewable tablet 81 mg PO QDAY 07/21/23 07/21/23 History (Aspirin Childrens) atorvastatin 40 mg tablet 40 mg PO QDAY 07/21/23 07/21/23 History ipratropium 0.5 mg-albuterol 3 mg 3 ml inhalation Q4H PRN 07/21/23 07/21/23 History (2.5 mg base)/3 mL nebulization soln Labs 07/23/23 05:24 07/23/23 05:24 Labs: Laboratory WBC 6.8 X10^3/uL (3.6-10.0) 07/23/23 05:24 RBC 4.07 X10^6/uL (3.5-5.4) 07/23/23 05:24 Hgb 13.1 g/dL (12.0-16.0) 07/23/23 05:24 Hct 38.3 % (36.0-47.0) 07/23/23 05:24 MCV 94.0 fL (80.0-100.0) 07/23/23 05:24 MCH 32.0 pg (27.0-34.0) 07/23/23 05:24 MCHC 34.1 g/dL (33.0-35.0) 07/23/23 05:24 RDW 14.3 % (11.6-16.5) 07/23/23 05:24 Plt Count 186 X10^3/uL (150.0-450.0) 07/23/23 05:24 MPV 8.7 fL (7.4-11.0) 07/23/23 05:24 Neut % (Auto) 76.7 % (42.0-75.0) H 07/23/23 05:24 Lymph % (Auto) 12.7 % (21.0-51.0) L 07/23/23 05:24 [place] % (Auto) 7.6 % (0.0-13.0) 07/23/23 05:24 Eos % (Auto) 2.6 % (0.9-2.9) 07/23/23 05:24 Baso % (Auto) 0.4 % (0.2-1.0) 07/23/23 05:24 Neut # (Auto) 5.2 x10^3/uL (2.2-4.8) H 07/23/23 05:24 Lymph # (Auto) 0.9 X10^3/uL (1.3-2.9) L 07/23/23 05:24 [place] # (Auto) 0.5 x10^3/uL (0.3-0.8) 07/23/23 05:24 Eos # (Auto) 0.2 x10^3/uL (0.0-0.2) 07/23/23 05:24 Baso # (Auto) 0.0 X10^3/uL (0.0-0.1) 07/23/23 05:24 Absolute Nucleated RBC 0.0 /100WBC 07/23/23 05:24 Sodium 142 mmol/L (136-145) 07/23/23 05:24 Corrected Sodium TNP 07/23/23 05:24 Potassium 4.0 mmol/L (3.5-5.1) 07/23/23 05:24 Chloride 106 mmol/L (98-107) 07/23/23 05:24 Carbon Dioxide 30.5 mmol/L (21-32) 07/23/23 05:24 BUN 14 mg/dL (7-18) 07/23/23 05:24 Creatinine 0.72 mg/dL (0.55-1.02) 07/23/23 05:24 Est GFR (MDRD) Af Amer > 60 (>60) 07/23/23 05:24 Est GFR (MDRD) Non-Af > 60 (>60) 07/23/23 05:24 Glucose 89 mg/dL (65-99) 07/23/23 05:24 Calcium 8.4 mg/dL (8.5-10.1) L 07/23/23 05:24 Corrected Calcium 9.4 mg/dL (8.5-10.1) 07/23/23 05:24 Total Bilirubin 0.60 mg/dL (0.2-1.0) 07/23/23 05:24 AST 22 Units/L (15-37) 07/23/23 05:24 ALT 32 Units/L (12-78) 07/23/23 05:24 Alkaline Phosphatase 94 Units/L (46-116) 07/23/23 05:24 Total Protein 5.8 g/dL (6.4-8.2) L 07/23/23 05:24 Albumin 2.7 g/dL (3.4-5.0) L 07/23/23 05:24 Globulin 3.1 g/dL (2.5-4.5) 07/23/23 05:24 Albumin/Globulin Ratio 0.9 Ratio (1.1-2.1) L 07/23/23 05:24 SARS-CoV-2 (PCR) Negative (NEGATIVE) 07/21/23 13:40 Influenza Type A (PCR) Negative (NEGATIVE) 07/21/23 13:40 Influenza Type B (PCR) Negative (NEGATIVE) 07/21/23 13:40 RSV (PCR) Negative (NEGATIVE) 07/21/23 13:40 Review of Systems Constitutional: No Symptoms Reported Eyes: No Symptoms Reported ENT: No Symptoms Reported Respiratory: Cough and Shortness of Breath Cardiovascular: No Symptoms Reported Gastrointestinal: No Symptoms Reported Genitourinary: No Symptoms Reported Musculoskeletal: No Symptoms Reported Skin: No Symptoms Reported Neurological: No Symptoms Reported Physical Exam Vital Signs: Vital Signs Temperature 97.9 F Pulse Rate [Left] 67 Pulse Rate 88 Respiratory Rate 20 Respiratory Rate 20 Respiratory Rate 20 Blood Pressure [Right Arm] 123/67 O2 Sat by Pulse Oximetry 96 O2 Sat by Pulse Oximetry 96 Oriented: Normal Eyes: Normal Ear: Normal Nose: Normal Throat: Normal Respiratory: Clear Throughout Cardiovascular: Normal : Normal Auscultation: Bowel Sounds: Normal Palpation: Normal Tenderness: Normal Skin: Normal Musculoskeletal: Normal Psychiatric: Normal Mood Description: Calm and Appropriate Affect: Normal Speech Pattern: Clear and Appropriate Assessment/Plan (1) Human metapneumovirus (hMPV) pneumonia: Status: Acute Plan: Smart vest IV Levaquin Bronchodilators scheduled Incentive spirometer (2) Bronchitis: Status: Inactive Review H&P Reviewed: Yes Patient was examined?: Yes
[2023-07-23 09:10] VITALS: O2SAT 97
[2023-07-23 09:24] VITALS: BP 120/57; PULSE 77; RESP 17; TEMP 97.3
--- NOTE | 2023-07-25 08:54 | W.DIS.FURT ---
Summary of Discharge Discharge Summary of Date Date of Exam: 07/23/23 Admission Date Date of Admission: 07/21/23 Admission Diagnosis Hospital Course: Ms Molina is a 67-year-old female with a past medical history of coronary artery disease, asthma and hyperlipidemia presented with worsening shortness of breath and cough. She was being treated outpatient with azithromycin and steroids. She was recently seen in the ER for similar symptoms and was discharged on Levaquin and Mucomyst. She continued to have increased shortness of breath and cough and was directly admitted from Dr. Birch's office. COVID/flu/RSV were all negative. AIT showed human [place] pneumo virus. Chest x- ray did not show any acute disease. Patient was admitted for viral pneumonia and bronchitis. She was continued on IV Levaquin, bronchodilators and incentive spirometer. RT was consulted for smart vest to help with chest congestion. Her labs were monitored daily and electrolytes were replaced as needed. She did not require any oxygen. She was ambulating in the room. She was stable for discharge and will follow-up with PCP. She will continue to use her nebulizer at home. Vital Signs: Vital Signs (72 hours) 07/21/23 13:38 07/21/23 13:39 07/21/23 13:20 Temperature Pulse Rate Pulse Rate [Left] Respiratory Rate 20 Blood Pressure 143/72 Blood Pressure [Left Arm] Blood Pressure [Right Arm] O2 Sat by Pulse Oximetry 97 Oxygen Delivery Method Nasal Cannula Room Air Room Air Oxygen Flow Rate 2 2 FIO2% 28 07/21/23 13:20 07/21/23 14:00 07/21/23 15:25 Temperature 97.5 F L Pulse Rate 83 Pulse Rate [Left] 70 Respiratory Rate 18 Blood Pressure Blood Pressure [Left Arm] 137/63 Blood Pressure [Right Arm] O2 Sat by Pulse Oximetry 97 97 96 Oxygen Delivery Method Oxygen Flow Rate FIO2% 07/21/23 19:00 07/21/23 20:00 07/22/23 00:00 Temperature 97.6 F 97.7 F Pulse Rate Pulse Rate [Left] 61 93 H Respiratory Rate 18 20 Blood Pressure Blood Pressure [Left Arm] Blood Pressure [Right Arm] 159/74 115/55 O2 Sat by Pulse Oximetry 97 97 Oxygen Delivery Method Nasal Cannula Oxygen Flow Rate 2 FIO2% 07/21/23 21:50 07/21/23 21:50 07/22/23 04:00 Temperature 97.5 F L Pulse Rate 77 Pulse Rate [Left] 64 Respiratory Rate 20 Blood Pressure Blood Pressure [Left Arm] Blood Pressure [Right Arm] 123/61 O2 Sat by Pulse Oximetry 96 99 Oxygen Delivery Method Nasal Cannula Oxygen Flow Rate 2 FIO2% 07/22/23 08:45 07/22/23 08:45 07/22/23 08:00 Temperature 97.8 F Pulse Rate 75 Pulse Rate [Left] 81 Respiratory Rate 18 Blood Pressure Blood Pressure [Left Arm] Blood Pressure [Right Arm] 131/62 O2 Sat by Pulse Oximetry 98 94 L Oxygen Delivery Method Room Air Oxygen Flow Rate FIO2% 07/22/23 10:28 07/22/23 12:00 07/22/23 16:00 Temperature 97.8 F 97.7 F Pulse Rate Pulse Rate [Left] 81 74 Respiratory Rate 18 18 Blood Pressure Blood Pressure [Left Arm] Blood Pressure [Right Arm] 148/69 125/68 O2 Sat by Pulse Oximetry 98 90 L Oxygen Delivery Method Nasal Cannula Oxygen Flow Rate 2 FIO2% 07/22/23 19:00 07/22/23 19:51 07/22/23 20:12 Temperature 98.2 F Pulse Rate Pulse Rate [Left] 81 Respiratory Rate 19 Blood Pressure Blood Pressure [Left Arm] Blood Pressure [Right Arm] 135/64 O2 Sat by Pulse Oximetry 95 Oxygen Delivery Method Nasal Cannula Nasal Cannula Oxygen Flow Rate 2 2 FIO2% 07/22/23 20:13 07/22/23 23:40 07/23/23 04:00 Temperature 98.1 F 97.9 F Pulse Rate 86 Pulse Rate [Left] 77 67 Respiratory Rate 18 20 Blood Pressure Blood Pressure [Left Arm] Blood Pressure [Right Arm] 121/65 123/67 O2 Sat by Pulse Oximetry 97 95 96 Oxygen Delivery Method Room Air Room Air Oxygen Flow Rate FIO2% 07/23/23 05:00 07/23/23 06:15 07/23/23 06:00 Temperature Pulse Rate 88 Pulse Rate [Left] Respiratory Rate 20 20 Blood Pressure Blood Pressure [Left Arm] Blood Pressure [Right Arm] O2 Sat by Pulse Oximetry 96 Oxygen Delivery Method Oxygen Flow Rate FIO2% 07/23/23 09:09 07/23/23 09:09 07/23/23 08:00 Temperature 97.3 F L Pulse Rate 88 Pulse Rate [Left] 77 Respiratory Rate 17 Blood Pressure Blood Pressure [Left Arm] Blood Pressure [Right Arm] 120/57 O2 Sat by Pulse Oximetry 97 94 L Oxygen Delivery Method Room Air Room Air Oxygen Flow Rate 2 FIO2% 28 07/23/23 09:23 Temperature Pulse Rate Pulse Rate [Left] Respiratory Rate Blood Pressure Blood Pressure [Left Arm] Blood Pressure [Right Arm] O2 Sat by Pulse Oximetry Oxygen Delivery Method Nasal Cannula Oxygen Flow Rate 2 FIO2% Labs: Laboratory Last Values WBC 6.8 X10^3/uL (3.6-10.0) 07/23/23 05:24 RBC 4.07 X10^6/uL (3.5-5.4) 07/23/23 05:24 Hgb 13.1 g/dL (12.0-16.0) 07/23/23 05:24 Hct 38.3 % (36.0-47.0) 07/23/23 05:24 MCV 94.0 fL (80.0-100.0) 07/23/23 05:24 MCH 32.0 pg (27.0-34.0) 07/23/23 05:24 MCHC 34.1 g/dL (33.0-35.0) 07/23/23 05:24 RDW 14.3 % (11.6-16.5) 07/23/23 05:24 Plt Count 186 X10^3/uL (150.0-450.0) 07/23/23 05:24 MPV 8.7 fL (7.4-11.0) 07/23/23 05:24 Neut % (Auto) 76.7 % (42.0-75.0) H 07/23/23 05:24 Lymph % (Auto) 12.7 % (21.0-51.0) L 07/23/23 05:24 Harvey % (Auto) 7.6 % (0.0-13.0) 07/23/23 05:24 Eos % (Auto) 2.6 % (0.9-2.9) 07/23/23 05:24 Baso % (Auto) 0.4 % (0.2-1.0) 07/23/23 05:24 Neut # (Auto) 5.2 x10^3/uL (2.2-4.8) H 07/23/23 05:24 Lymph # (Auto) 0.9 X10^3/uL (1.3-2.9) L 07/23/23 05:24 Harvey # (Auto) 0.5 x10^3/uL (0.3-0.8) 07/23/23 05:24 Eos # (Auto) 0.2 x10^3/uL (0.0-0.2) 07/23/23 05:24 Baso # (Auto) 0.0 X10^3/uL (0.0-0.1) 07/23/23 05:24 Absolute Nucleated RBC 0.0 /100WBC 07/23/23 05:24 Sodium 142 mmol/L (136-145) 07/23/23 05:24 Corrected Sodium TNP 07/23/23 05:24 Potassium 4.0 mmol/L (3.5-5.1) 07/23/23 05:24 Chloride 106 mmol/L (98-107) 07/23/23 05:24 Carbon Dioxide 30.5 mmol/L (21-32) 07/23/23 05:24 BUN 14 mg/dL (7-18) 07/23/23 05:24 Creatinine 0.72 mg/dL (0.55-1.02) 07/23/23 05:24 Est GFR (MDRD) Af Amer > 60 (>60) 07/23/23 05:24 Est GFR (MDRD) Non-Af > 60 (>60) 07/23/23 05:24 Glucose 89 mg/dL (65-99) 07/23/23 05:24 Calcium 8.4 mg/dL (8.5-10.1) L 07/23/23 05:24 Corrected Calcium 9.4 mg/dL (8.5-10.1) 07/23/23 05:24 Total Bilirubin 0.60 mg/dL (0.2-1.0) 07/23/23 05:24 AST 22 Units/L (15-37) 07/23/23 05:24 ALT 32 Units/L (12-78) 07/23/23 05:24 Alkaline Phosphatase 94 Units/L (46-116) 07/23/23 05:24 Total Protein 5.8 g/dL (6.4-8.2) L 07/23/23 05:24 Albumin 2.7 g/dL (3.4-5.0) L 07/23/23 05:24 Globulin 3.1 g/dL (2.5-4.5) 07/23/23 05:24 Albumin/Globulin Ratio 0.9 Ratio (1.1-2.1) L 07/23/23 05:24 SARS-CoV-2 (PCR) Negative (NEGATIVE) 07/21/23 13:40 Influenza Type A (PCR) Negative (NEGATIVE) 07/21/23 13:40 Influenza Type B (PCR) Negative (NEGATIVE) 07/21/23 13:40 RSV (PCR) Negative (NEGATIVE) 07/21/23 13:40 Reason For Visit: UPPER RESPIRATORY INFECTION; PNEUMONIA Discharge Diagnosis All Active Problems (Updated 07/23/23 @ 08:35 by Avtar Uriostegui) Human metapneumovirus (hMPV) pneumonia (Acute) CAD (coronary artery disease) (Chronic) Hypertension (Chronic) [place]at[place]us (Chronic) Sleep apnea (Chronic) Arthritis (Chronic) History of anemia (Chronic) History of angina (Chronic) History of coronary artery stent placement (Chronic) CAP (community acquired pneumonia) (Acute) Influenza (Acute) Shortness of breath (Acute) Viral pneumonia (Acute) Asthma exacerbation (Acute) Hyperlipidemia (Chronic) GERD (gastroesophageal reflux disease) (Chronic) Chest pain of uncertain etiology (Acute) Chest pain (Acute) Neck pain on right side (Acute) Dysphagia (Acute) History of esophagogastroduodenoscopy (EGD) (Acute) Epiploic appendagitis (Acute) LLQ abdominal pain (Acute) Abdominal pain, LLQ (Acute) Appendicitis epiploica (Acute) Acute pelvic pain (Acute) Diverticulosis (Acute) Pneumonia (Acute) Mucus plug in respiratory tract (Acute) Plan of Treatment: Continue with present treatment and follow up plan. Pt is to keep follow up appointment as instructed and take medications as ordered. Discharge Medications Discharge Medications: cetirizine [From Zyrtec] Allergy (Verified 07/18/23 16:45) hydromorphone [From Dilaudid] Allergy (Verified 07/18/23 16:45) Penicillins Allergy (Verified 07/18/23 16:45) promethazine [From Phenergan] Allergy (Verified 07/18/23 16:45) Sulfa (Sulfonamide Antibiotics) Allergy (Verified 07/18/23 16:45) CONTINUE taking the following medications aspirin 81 mg chewable tablet (Aspirin Childrens) 81 mg PO QDAY 07/21/23 [History] atorvastatin 40 mg tablet 40 mg PO QDAY 07/21/23 [History] ipratropium 0.5 mg-albuterol 3 mg (2.5 mg base)/3 mL nebulization soln 3 ml inhalation Q4H PRN 07/21/23 [History] Discharge Disposition Assessment: No acute distress noted at discharge. Discharge Disposition: To home Discharge Condition: Stable Discharge Plan Discharge Plan Hospital Course: Ms Molina is a 67-year-old female with a past medical history of coronary uriel ry disease, asthma and hyperlipidemia presented with worsening shortness of breath and cough. She was being treated outpatient with azithromycin and steroids. She was recently seen in the ER for similar symptoms and was discharged on Levaquin and Mucomyst. She continued to have increased shortness of breath and cough and was directly admitted from Dr. Birch's office. COVID/flu/RSV were all negative. AIT showed human [place] pneumo virus. Chest x- ray did not show any acute disease. Patient was admitted for viral pneumonia and bronchitis. She was continued on IV Levaquin, bronchodilators and incentive spirometer. RT was consulted for smart vest to help with chest congestion. Her labs were monitored daily and electrolytes were replaced as needed. She did not require any oxygen. She was ambulating in the room. She was stable for discharge and will follow-up with PCP. She will continue to use her nebulizer at home. Patient Disposition: 01 HOME, SELF-CARE Condition: Stable Health Concerns: Post Hospitalization: new medications and changes needed to prevent readmission or further decline. Pt educated and given instructions on all concerns. Care Plan Goals: Problem: Activity Intolerance Goal: Increased tolerance to activity Instructions: Follow provided instructions. Follow up with primary physician as directed. Contact primary care physician or report to the closest Emergency Room if condition worsens. Plan of Treatment: Continue with present treatment and follow up plan. Pt is to keep follow up appointment as instructed and take medications as ordered. Assessment: No acute distress noted at discharge. Prescription drug monitoring program results: PDMP reviewed and no concerns identified Prescriptions: Continued atorvastatin 40 mg tablet 40 mg PO QDAY ipratropium-albuterol 0.5 mg-3 mg(2.5 mg base)/3 mL Solution For Nebulization 3 ml INHALATION Q4H PRN aspirin [Aspirin Childrens] 81 mg Tablet,Chewable 81 mg PO QDAY pantoprazole 40 mg tablet,delayed release (DR/EC) 40 mg PO BID Patient Comments: TAKE 1 TABLET BY MOUTH ONCE DAILY ondansetron 4 mg tablet,disintegrating 4 mg PO Q8H PRN acetylcysteine 200 mg/mL (20 %) solution 1 ml inhalation Q6H Qty: 30 0RF ketorolac 10 mg tablet 10 mg PO Q8H PRNQty: 15 0RF Rx Instructions: maximum total duration of 5 days from all oral, intranasal, or parenteral formulations Discontinued methylprednisolone 4 mg tablets,dose pack See Rx Instructions .ROUTE .COMPLEX Rx Instructions: take as directed x 5 days - started on 07/18/23 levofloxacin 750 mg tablet 750 mg PO QDAY Qty: 7 0RF Orders to Discharge Patient Discharge Orders: Discharge (Routine); Ordered 07/23/23 Ordered By: Maci Montgomery Follow ups/Referrals Follow ups/Referrals: Miky Birch [Primary Care Provider] - 1 WEEK (Call on Tuesday to make follow up appointment. Office closed on day of discharge.) Instructions Instructions: Shortness of Breath, Adult, [id number], Viral Respiratory Infection, [id number] Stand Alone Forms: Post Hospital Follow Up Care
== END 2023-07-23 11:45 | disposition home or self-care (01) ==
LOC: MED/SURG
PROVIDERS: ADMIT Internal Medicine; ATTEND Internal Medicine